=== PATIENT | male | born 1975 | race Caucasian/White ===

== ENCOUNTER 2017-04-28 12:40 | Emergency (ER) | payer SELFPAY ==
[2017-04-28] MEDS ORDERED: 0.9 % SODIUM CHLORIDE 500 ML IV ONE (12:46)
--- NOTE | 2017-04-28 12:46 | ED Physician Documentation ---
General Adult - HISTORIAN Historian: patient - HPI Stated Complaint: chest pain, out of bipolar meds Chief Complaint: General Adult Onset: hours Timing: still present Severity: moderate Further Comments: yes (Pt is a 41 yo male with hx bipolar d/o, HTN, who was unable to refill his Lomotrine and Atenolo rx's due to a mix up at his pharmacy and has been off these for 3 days. Pt also takes Zoloft, which he has been taking. Pt states that he is shivering, but is not cold. He has had brief stabbing pains in his chest, which recur but last only a few seconds when they happen. Pt has not been sob, but he has been "queasy," nauseated, and sweaty.) - ROS CONST: other ("queasy") EYES/ENT: none CVS/RESP: chest pain (brief, stabbing) GI/: nausea ("queasy") MS/SKIN/LYMPH: none NEURO/PSYCH: other (anxious) - PAST HX Past History: other (bipolar d/o, anxiety, HTN.) Allergies/Adverse Reactions: Allergies Allergy/AdvReac Type Severity Reaction Status Date / Time lithium Allergy Verified 04/28/17 12:50 Home Medications: Ambulatory Orders Medication Instructions Recorded Atenolol 100 mg PO QDAY 04/28/17 Lamotrigine [Lamictal] 200 mg PO QDAY 04/28/17 Sertraline HCl [Zoloft] 04/28/17 - SOCIAL HX Smoking History: non-smoker - FAMILY HX Family History: No - VITAL SIGNS Vital Signs: Vital Signs Temp Pulse Resp BP Pulse Ox 147/101 11/23/15 00:38 - REVIEWED ASSESSMENTS Nursing Assessment Reviewed: Yes Vitals Reviewed: Yes Progress - Progress Progress: Medication Refills: Rx Lamotrigine 200 mg. Take one by mouth once daily. #90 with 1 RF called to [facility] rx for 5 tablets to fill locally. Rx Atenolol 100 mg. Take one by mouth once daily. #90 with 1 RF called to [facility] for 5 tabletsto fill locally. - EKG/XRAY/CT EKG: NSR (HR=90; LAD, as seen on previous EKG.) General Adult Physical Exam - PHYSICAL EXAM GENERAL APPEARANCE: anxious NECK: normal inspection, supple RESPIRATORY: no resp distress, chest non-tender, breath sounds normal CVS: reg rate & rhythm, heart sounds normal ABDOMEN: soft, no organomegaly, normal bowel sounds BACK: normal inspection, no CVA tenderness SKIN: warm/dry, normal color EXTREMITIES: non-tender, normal range of motion, no evidence of injury NEURO: oriented X3, motor nml, sensation nml, other (anxious) Discharge Clincal Impression: Non-cardiac chest pain, Anxiety, Medication refill Referrals: Primary Doctor,No [Primary Care Provider] - Home Medications: Ambulatory Orders Atenolol 100 mg PO QDAY 04/28/17 Lamotrigine [Lamictal] 200 mg PO QDAY 04/28/17 Sertraline HCl [Zoloft] 04/28/17 Condition: Good Disposition: 01 HOME, SELF-CARE Decision to Admit: NO Decision Time: 15:19
[2017-04-28] MEDS ORDERED: LAMOTRIGINE 100 MG TABLET PO SCH (13:00)
[2017-04-28] MEDS ORDERED: ATENOLOL 25 MG TABLET PO SCH (13:00)
[2017-04-28 13:13] LABS: BASOPHILS % 0.7 (0.0-1.5); EOSINOPHILS % 1.7 % (0.0-6.8); MEAN CORPUSCULAR HEMOGLOBIN 28.9 pg (28.0-34.0); MEAN CORPUSCULAR VOLUME 87.9 fl (80.0-100.0); MONOCYTES % 3.1 % (0.0-11.0); NEUTROPHILS # 5.4 # k/uL (1.4-7.7)
[2017-04-28 13:33] LABS: eGFR (African) > 60; eGFR (Non-African) > 60
[2017-04-28] MEDS ORDERED: LORazepam 2 MG/ML VIAL IVP ONE (13:53)
[2017-04-28 15:53] VITALS: BP 109/73
== END 2017-04-28 15:30 | disposition home or self-care (01) ==
LOC: ED 12:40
DX: R07.89 Other chest pain (principal); F41.9 Anxiety disorder, unspecified
CPT/HCPCS: 80053; 82550; 84484; 85025; 85379; J2060; J7060; 96361; 96374; 99283; S1016

== ENCOUNTER 2017-08-02 15:15 | Emergency (ER) | payer SELFPAY ==
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
[2017-08-02] MEDS ORDERED: KETOROLAC TROMETHAMINE 30 MG/1ML VIAL IVP ONE (15:36)
[2017-08-02 15:50] LABS: BASOPHILS % 0.5 (0.0-1.5); EOSINOPHILS % 1.6 % (0.0-6.8); MEAN CORPUSCULAR HEMOGLOBIN 29.3 pg (28.0-34.0); MEAN CORPUSCULAR VOLUME 88.2 fl (80.0-100.0); MONOCYTES % 3.8 % (0.0-11.0); NEUTROPHILS # 4.9 # k/uL (1.4-7.7)
[2017-08-02 15:59] LABS: eGFR (African) > 60; eGFR (Non-African) > 60
[2017-08-02] MEDS ORDERED: ATENOLOL 25 MG TABLET PO SCH (16:00)
[2017-08-02] MEDS ORDERED: ATENOLOL 25 MG TABLET PO ONE (16:01)
[2017-08-02] MEDS ORDERED: HYDROcodone /APAP 5/325 1 EACH TABLET PO ONE (16:27)
[2017-08-02 17:14] VITALS: BP 128/82
== END 2017-08-02 17:12 | disposition home or self-care (01) ==
LOC: ED 15:15
DX: I10 Essential (primary) hypertension (principal)
CPT/HCPCS: 36415; 80053; 85025; A9270; J1885; 96374; 99283